=== PATIENT | male | born 2000 | race Caucasian/White ===

== ENCOUNTER 2022-05-15 06:56 | Emergency (ER) | payer OTHER ==
[~2022-05-15] VITALS: Ht 170.2 cm; Wt 98.5 kg
[2022-05-15] MEDS ORDERED: KETOROLAC 30 MG/ML 1ML VIAL IV ONE (07:20)
[2022-05-15] MEDS ORDERED: ONDANSETRON 4MG 2ML VIAL IV ONE (07:20)
[2022-05-15] MEDS ORDERED: NS 1,000 ML IV ONE (07:20)
[2022-05-15] MEDS ORDERED: ISOVUE-370 76% 100ML VIAL As Ordered ONE (08:22)
[2022-05-15 08:41] LABS: BASO % 0.8 % (0.0-1.0); EOS # 0.3 10^3/uL (0.0-0.5); HEMATOCRIT 45.1 % (42.0-52.0); HEMOGLOBIN 14.6 g/dl (13.5-17.5); LYMPH # 1.9 10^3/uL (1.5-5.0); LYMPH % 36.3 % (24.0-44.0); MEAN CORPUSCULAR HEMOGLOBIN 30.2 pg (27.0-33.0); MEAN CORPUSCULAR HGB CONC 32.4 g/dl (32.0-36.5); MEAN CORPUSCULAR VOLUME 93.4 fl (80.0-96.0); MONO # 0.2 10^3/uL (0.0-0.8); MONO % 4.6 % (2.0-8.0); NEUTROPHILS # 2.8 10^3/uL (1.5-8.5); NEUTROPHILS % 52.9 % (36.0-66.0); PLATELET COUNT, AUTOMATED 224 10^3/uL (150-450); RED BLOOD COUNT 4.83 10^6/uL (4.30-6.10); WHITE BLOOD COUNT 5.2 10^3/uL (4.0-10.0)
[2022-05-15 09:01] LABS: BILIRUBIN,DIRECT 0.2 MG/DL (<0.4); BILIRUBIN,TOTAL 0.5 MG/DL (0.3-1.2); TOTAL PROTEIN 6.6 G/DL (5.7-8.2)
[2022-05-15 09:08] LABS: RSV AMPLIFICATION NEGATIVE (NEGATIVE)
[2022-05-15] MEDS ORDERED: ONDA4TAB6 PO (09:44)
[2022-05-15 09:45] VITALS: BP 121/56
== END 2022-05-15 10:21 | disposition home or self-care (01) ==
LOC: M ED 06:56
DX: R10.9 Unspecified abdominal pain (principal); R11.10 Vomiting, unspecified
CPT/HCPCS: 74177; 80047; 80076; 82150; 83605; 83690; 85025; 87631; 93041; 96374; 96375; 99284; J1885; J2405; Q9967